=== PATIENT | female | born 1960 | race Caucasian/White ===

== ENCOUNTER 2020-12-19 09:10 | Outpatient (CLI) | payer OTHER | END 2020-12-19 09:15 | disposition home or self-care (01) | LOC: PPH VACUNA 09:10 | DX: Z23 Encounter for immunization (principal) ==

== ENCOUNTER 2023-04-19 07:47 | Outpatient (CLI) | payer OTHER | END 2023-04-19 07:50 | disposition home or self-care (01) | LOC: NUCLEAR 07:47 | PROVIDERS: ATTEND Obstetrics & Gynecology | DX: C53.9 Malignant neoplasm of cervix uteri, unspecified (principal) ==

== ENCOUNTER 2023-04-23 09:20 | Outpatient (CLI) | payer OTHER | END 2023-04-23 09:35 | disposition home or self-care (01) | LOC: MRI 09:20 | PROVIDERS: ATTEND Obstetrics & Gynecology Gynecologic Oncology | DX: C53.9 Malignant neoplasm of cervix uteri, unspecified (principal) | CPT/HCPCS: 72197 ==

== ENCOUNTER 2024-05-02 08:16 | Outpatient (CLI) | payer OTHER | END 2024-05-02 08:18 | disposition home or self-care (01) | LOC: NUCLEAR 08:16 | PROVIDERS: ATTEND Obstetrics & Gynecology Gynecologic Oncology | DX: C53.0 Malignant neoplasm of endocervix (principal) ==